=== PATIENT | male | born 1975 | race Caucasian/White ===

== ENCOUNTER 2019-07-02 04:23 | Emergency (ER) | payer OTHER ==
[~2019-07-02] VITALS: Ht 182.9 cm; Wt 179.5 kg
--- NOTE | 2019-07-02 04:25 | PHYS DOC ---
Adult General Chief Complaint Chief Complaint: ".. I ve got dental pain. .. here in this tooth... but it just started... and now the whole Lt side of my face is swollen.. I took some left over Amoxicillin.. 500 mg .. I was going to get in to my dentist.. but my face really swelled up tonight..." HPI HPI Patient is a 43 year old male who presents with above hx and complaints of dental pain.tooth #4 and the surrounding gum. No pointing abscesses. No trismus. No history immunosuppression. General dental care of look good. Does have edema over the entire right side of face and adenopathy at the angle of mandible. Last tetanus was approximately 4 years ago. Review of Systems Review of Systems Constitutional: History of fever Eyes: Denies change in visual acuity, redness, or eye pain [] HENT: Denies nasal congestion or sore throat []history of dental pain and facial swelling Respiratory: Denies cough or shortness of breath [] Cardiovascular: No additional information not addressed in HPI [] GI: Denies abdominal pain, nausea, vomiting, bloody stools or diarrhea [] : Denies dysuria or hematuria [] Musculoskeletal: Denies back pain or joint pain [] Integument: Denies rash or skin lesions [] Neurologic: Denies headache, focal weakness or sensory changes [] Endocrine: Denies polyuria or polydipsia [] All other systems were reviewed and found to be within normal limits, except as documented in this note. Family History Family History Noncontributory Current Medications Current Medications See nursing for home medications Allergies Allergies Reports hydrocordone makes him vomit Physical Exam Physical Exam Constitutional: Moderate acute distress, non-toxic appearance. [] HENT: Normocephalic, atraumatic, bilateral external ears normal, oropharynx moist, no oral exudates, nose normal. [Dental pain in and around tooth #4. Obvious swelling of the gum in area of tooth 4#some adenopathy at ankle on mandible. Does have facial cellulitis. No periorbital cellulitis no trismus. Eyes: PERRLA, EOMI, conjunctiva normal, no discharge. [] Neck: Normal range of motion, no tenderness, supple, no stridor. [] Cardiovascular:Heart rate regular rhythm, no murmur [] Lungs & Thorax: Bilateral breath sounds clear to auscultation [] Abdomen: Bowel sounds normal, soft, no tenderness, no masses, no pulsatile masses. [] Obese Skin: Warm, dry, no erythema, no rash. [] Back: No tenderness, no CVA tenderness. [] Extremities: No tenderness, no cyanosis, no clubbing, ROM intact, no edema. [] Neurologic: Alert and oriented X 3, normal motor function, normal sensory function, no focal deficits noted. [] Psychologic: Affect anxious, judgement normal, mood normal. [] EKG EKG [] Radiology/Procedures Radiology/Procedures [] Course & Med Decision Making Course & Med Decision Making Pertinent Labs and Imaging studies reviewed. (See chart for details) Take Tylenol and ibuprofen for pain. Take Keflex 500 mg 3 times a day. Must see a dentist. Return if any concerns. Follow-up primary care. Recheck blood pressure on follow-up. 1. Dental pain-suspect dental abscess in and around area of tooth #4 2. Right facial cellulitis 3. Elevated blood pressure [] Dragon Disclaimer Dragon Disclaimer This electronic medical record was generated, in whole or in part, using a voice recognition dictation system. Departure Departure: Disposition: 01 HOME/RESIDENCE PRIOR TO ADM Condition: STABLE Referrals: PCP,NO (PCP) Scripts Cephalexin (KEFLEX) 500 Mg Capsule 500 MG PO TID for facial cellulitis for 10 Days, BOTTLE Prov: PHILIPPE HANNON MD 07/02/19 Hydrocodone/Ibuprofen (HYDROCODONE-IBUPROFEN 7.5-200 ) 1 Each Tablet 1 TAB PO PRN Q6HRS PRN for PAIN, #30 TAB 0 Refills Prov: PHILIPPE HANNON MD 07/02/19 Eugenia Disclaimer This chart was dictated in whole or in part using Voice Recognition software in a busy, high-work load, and often noisy Emergency Department environment. It may contain unintended and wholly unrecognized errors or omissions. PHILIPPE HANNON MD Jul 02, 2019 04:25
[2019-07-02] MEDS ORDERED: cefTRIAXone IM 1 GM VIAL IM ONE (05:00)
[2019-07-02] MEDS ORDERED: KETOROLAC 60 MG/2 ML VIAL. IM ONE (05:00)
[2019-07-02] MEDS ORDERED: CEPH-264 PO (05:16)
[2019-07-02] MEDS ORDERED: HYDR-1179 PO (05:16)
[2019-07-02] MEDS ORDERED: LIDOCAINE 1% Multi-Dose 20 ML VIAL. ONE (05:17)
[2019-07-02 05:45] VITALS: BP 165/107
== END 2019-07-02 05:47 | disposition home or self-care (01) ==
LOC: ER 04:23
DX: K08.89 Other specified disorders of teeth and supporting structures (principal); L03.211 Cellulitis of face; I10 Essential (primary) hypertension; R60.0 Localized edema
CPT/HCPCS: 96372; 99284; J0696; J1885

== ENCOUNTER 2021-04-14 07:07 | Emergency (ER) | payer OTHER ==
[~2021-04-14] VITALS: Ht 182.9 cm; Wt 179.5 kg
[~2021-04-14 07:07] MED LIST: CEPH-264 PO; HYDR-1179 PO
--- NOTE | 2021-04-14 07:23 | EKG ---
[address] [address] Test Date: 2021-04-14 Test Time: 07:13:00 Pat Name: NIALL GRANT Department: Room: Gender: M Upstairs Maid: DAFNE : 1975 Requested By: MYRNA CAMACHO Order Number: [id number] Reading MD: Ricardo Jones Measurements Intervals [place] Rate: 80 P: 37 RI: 140 QRS: 28 QRSD: 96 T: 15 QT: 366 QTc: 426 Interpretive Statements SINUS RHYTHM NORMAL ECG RI6.02 No previous ECG available for comparison Electronically Signed On 04-15-2021 14:26:01 [employer] by Ricardo Jones
[2021-04-14] MEDS ORDERED: ONDANSETRON PF 4 MG/2 ML VIAL. IVP ONE (07:30)
[2021-04-14] MEDS ORDERED: IV NORMAL SALINE 1,000ML 1,000 ML IV ONE (07:30)
--- NOTE | 2021-04-14 07:30 | PHYS DOC ---
Past History Past Medical History: No Pertinent History Past Surgical History: No Surgical History Alcohol Use: Occasionally General Adult EDM: Chief Complaint: SYNCOPE HPI: HPI: 45-year-old male presents with syncopal episode and head laceration. The patient was sitting on the toilet and he had some abdominal pain. He thought he might need to throw up but not lasting he remembers. He then remembers his helping pick him up off the floor. The patient went unconscious and fell off the toilet and hit his forehead on something. He has a 2 cm laceration between his eyes. He has had recent Covid exposure and he is not vaccinated. He is feeling mildly short of breath and has a cough at this time. Denies fever or chills. Review of Systems: Review of Systems: Constitutional: Denies fever or chills Eyes: Denies change in visual acuity HENT: Denies nasal congestion or sore throat Respiratory: Intermittent cough with shortness of breath Cardiovascular: Denies chest pain or edema GI: Nausea. Denies abdominal pain, vomiting, bloody stools or diarrhea : Denies dysuria Musculoskeletal: Denies back pain or joint pain Integument: Laceration forehead Neurologic: Syncope. Denies headache, focal weakness or sensory changes Endocrine: Denies polyuria or polydipsia Lymphatic: Denies swollen glands Psychiatric: Denies depression or anxiety Allergies: Allergies: Allergies Coded Allergies Type Severity Reaction Last Updated Verified hydrocodone Allergy Intermediate Nausea and Vomiting 07/02/19 Yes Physical Exam: PE: Constitutional: Well developed, well nourished, morbidly obese, no acute distress, non-toxic appearance. [] HENT: Normocephalic, atraumatic, bilateral external ears normal, oropharynx moist, no oral exudates, nose normal. [] Eyes: PERRLA, EOMI, conjunctiva normal, no discharge. [] Neck: Normal range of motion, no tenderness, supple, no stridor. [] Cardiovascular: Heart rate 80, regular rhythm, no murmur [] Lungs & Thorax: Bilateral breath sounds clear to auscultation [] Abdomen: Bowel sounds normal, soft, no tenderness, no masses, no pulsatile masses. [] Skin: Warm, dry, no erythema, no rash. [] Back: No tenderness, no CVA tenderness. [] Extremities: No tenderness, no cyanosis, no clubbing, ROM intact, no edema. [] Neurologic: Alert and oriented X 3, normal motor function, normal sensory function, no focal deficits noted. [] Psychologic: Affect normal, judgement normal, mood normal. [] Current Patient Data: Vital Signs: Vital Signs Date Time Temp Pulse Resp B/P (MAP) Pulse Ox O2 Delivery O2 Flow Rate FiO2 04/14/21 07:07 98.2 77 20 103/53 (70) 92 Room Air EKG: EKG: Sinus rhythm, rate 80, normal axis, no ST elevation or depression. [] Radiology/Procedures: Radiology/Procedures: [] Impressions: CT brain without contrast. HISTORY: Syncope, fall. CT scan the brain was done without contrast. Sinuses are clear. A skull fracture is not identified. There is no intracranial hemorrhage or subdural hematoma. There is no mass effect or shift of the midline. Ventricles are normal in size. An acute CVA is not identified. IMPRESSION: 1. No intracranial hemorrhage or acute finding noted. PQRS Compliance Statement: One or more of the following individualized dose reduction techniques were utilized for this examination: 1. Automated exposure control 2. Adjustment of the mA and/or kV according to patient size 3. Use of iterative reconstruction technique Electronically signed by: Chilango Talley MD (04/14/2021 8:07 AM) [id number] DICTATED AND SIGNED BY: CHILANGO TALLEY MD DATE: 04/14/21 08 CC: MYRNA CAMACHO DO; PCP,NO ~MTH0 0 CT THORAX WO INDICATION: SHORTNESS OF BREATH, SYNCOPE, DIZZINESS, SWEATY COMPARISON STUDY: Chest radiograph 04/14/2021. TECHNIQUE: Unenhanced axial images were obtained through the lungs and upper abdomen. Coronal and sagittal multiplanar reconstructions were also obtained. PQRS compliance statement: One or more of the following individualized dose reduction techniques were utilized for this examination: 1. Automated exposure control 2. Adjustment of the mA and/or kV according to patient size 3. Use of iterative reconstruction technique FINDINGS: Lungs and Airways: Scattered bilateral groundglass opacities and cons olidations.. Calcified pulmonary granulomas. Normal central airways. Pleura: The pleural spaces are normal. Heart and Mediastinum: The visualized thyroid gland is normal in size and attenuation. No axillary or supraclavicular lymphadenopathy. No mediastinal, hilar or retrocrural lymphadenopathy. Calcified mediastinal lymph nodes consistent with remote granulomatous disease. The heart and pericardium are within normal limits. The great vessels of the thorax are normal. Abdomen: Hepatic steatosis. Enlarged spleen measuring 14.5 cm. Bones and Soft Tissues: The visualized skeletal structures and soft tissues of the chest wall are within normal limits. IMPRESSION: 1. Scattered bilateral groundglass opacities and consolidations, likely representing multifocal infection. 2. Hepatic steatosis. Electronically signed by: Tevin Swartz MD (04/14/2021 8:21 AM) [id number] DICTATED AND SIGNED BY: TEVIN SWARTZ MD DATE: 04/14/21814 CC: MYRNA CAMACHO DO; PCP,NO ~MTH0 0 Heart Score: C/O Chest Pain: N/A Risk Factors: Risk Factors: DM, Current or recent (<one month) smoker, HTN, HLP, family history of CAD, obesity. Risk Scores: Score 0 - 3: 2.5% MACE over next 6 weeks - Discharge Home Score 4 - 6: 20.3% MACE over next 6 weeks - Admit for Clinical Observation Score 7 - 10: 72.7% MACE over next 6 weeks - Early Invasive Strategies Course & Med Decision Making: Course & Med Decision Making Pertinent Labs and Imaging studies reviewed. (See chart for details) The patient's labs are significant for decreased platelets of 99. They are otherwise unremarkable. Chest x-ray shows bilateral pneumonia and likely COVID- 19. I have treated the patient with a gram of Rocephin, 500 mg of azithromycin, 10 mg of dexamethasone. He states feeling okay except for fatigue. I repaired his forehead laceration. See note below for details. The patient does not meet admission criteria. His oxygen level has stayed 93 to 94% on room air with a normal heart rate and blood pressure. I have advised the patient isolate f rom other people at home. If his symptoms worsen or new symptoms develop, the patient may need to return to the emergency room for hospital admission. He states verbal understanding. He is stable for discharge at this time. [] Dragon Disclaimer: Dragon Disclaimer: This electronic medical record was generated, in whole or in part, using a voice recognition dictation system. Departure Departure: Impression: Primary Impression: COVID-19 Additional Impression: Pneumonia Qualified Codes: J18.9 - Pneumonia, unspecified organism Disposition: 01 HOME / SELF CARE / HOMELESS Condition: STABLE Referrals: PCP,NO (PCP) Patient Instructions: Pneumonia, Adult, [id number] Additional Instructions: You have been tested for or diagnosed with COVID-19. It is an infection caused by a new type of coronavirus. COVID-19 will cause cold-like or mild flu symptoms in most. It can cause more severe symptoms like problems breathing in some. There is no treatment for COVID-19. The body will clear the infection over time. Self-care will help to ease discomfort. Steps to Take: Self-Care Rest as needed. Healthy habits may help you feel better. Steps include: Choose healthy foods including fruits and vegetables. Drink water throughout the day. Get plenty of sleep each night. If you smoke, try to quit. It may ease breathing. Avoid alcohol. Keep Others Healthy The virus can spread to others. Droplets are released every time you sneeze or cough. The droplets can get into the mouth, nose, or eyes of people near you and lead to infection. To lower the chances of spreading COVID-19 to others: Stay at home until your doctor has said it is safe to leave. If you tested positive this will mean staying isolated until both of the following are true: At least 7 days have passed since the start of illness. You are free of fever for at least 72 hours without the use of medicine. During this time: - Avoid public areas, events, or transportation. Do not return to work or school until your doctor has said it is safe to do so. - Call ahead if you need to go to a medical center. Let them know you may have COVID-19. It will help them guide you where to go. They may also ask you to wear a facemask when you come to the office. - If you call for emergency medical services, let them know you may have COVID- 19. While at home: - Try to avoid close contact with others. Stay about 6 feet away. - If possible, spend most of your time in a separate room from others. - Use a face mask if you will be in close contact with others such as sharing a room or vehicle. - Have someone wipe down common surfaces in the home. Use household batch weigher every day on areas like doorknobs, counters, or sinks. - Cough or sneeze into a tissue. Throw the tissue away right after use. If a tissue is not available, cough or sneeze into your elbow. - Wash your hands often. Wash them after sneezing or coughing. Use soap and water and wash for at least 20 seconds. Alcohol based hand rug cleaner hand can be used if soap and water is not available. - Do not prepare food for others. Avoid sharing personal items like forks, spoons, or toothbrushes. - Avoid close contact with pets while you are sick. There is no evidence of the virus passing to pets. This is a safety step until more is known about this virus. Isolation can be frustrating. Social interaction can help. Keep in touch with friends and family through phone and tech options. You can still interact with others in your home, just keep a safe distance of about 6 feet. Follow-up: Your doctors office will check in with you to see if there are any changes in your health. You may be asked to keep track of symptoms to share with them. They will also let you know when you are clear to be in public again. Problems to Look Out For: Contact your doctor if your recovery is not going as you expect. Get emergency care if you have problems such as: - Trouble breathing - Nonstop chest pain or pressure - Changes in awareness, confusion, or problems waking - Lips or face have bluish color - Worsening of symptoms If you think you have an emergency, call for emergency medical services right away. As taken from [facility] Scripts Dexamethasone (Decadron) 4 Mg Tablet 1 TAB PO BID for COVID-19 for 4 Days, #8 TAB 0 Refills Prov: MYRNA CAMACHO DO 04/14/21 Azithromycin (AZITHROMYCIN TABLET) 250 Mg Tablet 250 MG PO DAILY for ANTI-BIOTIC for 4 Days, #4 TAB 0 Refills start 04/15/21 Prov: MYRNA CAMACHO DO 04/14/21 MYRNA CAMACHO DO Apr 14, 2021 07:30
--- NOTE | 2021-04-14 08:03 | RAD ---
XR CHEST 1V History: Reason: syncope, fall / Spl. Instructions: / History: Comparison: None. Findings: Mild ill-defined mid and bibasilar opacities. No pleural effusion. No pneumothorax. Enlarged cardiac size. Impression: 1. Mild ill-defined mid and bibasilar opacities, may represent atelectasis or developing infiltrates . 2. Enlarged cardiac size. Electronically signed by: René Rich DO (04/14/2021 8:01 AM) [facility] [place]
--- NOTE | 2021-04-14 08:09 | RAD ---
CT brain without contrast. HISTORY: Syncope, fall. CT scan the brain was done without contrast. Sinuses are clear. A skull fracture is not identified. T here is no intracranial hemorrhage or subdural hematoma. There is no mass effect or shift of the midl ine. Ventricles are normal in size. An acute CVA is not identified. IMPRESSION: 1. No intracranial hemorrhage or acute finding noted. PQRS Compliance Statement: One or more of the following individualized dose reduction techniques were utilized for this examinat ion: 1. Automated exposure control 2. Adjustment of the mA and/or kV according to patient size 3. Use of iterative reconstruction technique Electronically signed by: Chilango Talley MD (04/14/2021 8:07 AM) [id number]
--- NOTE | 2021-04-14 08:23 | RAD ---
CT THORAX WO INDICATION: SHORTNESS OF BREATH, SYNCOPE, DIZZINESS, SWEATY COMPARISON STUDY: Chest radiograph 04/14/2021. TECHNIQUE: Unenhanced axial images were obtained through the lungs and upper abdomen. Coronal and sa gittal multiplanar reconstructions were also obtained. PQRS compliance statement: One or more of the following individualized dose reduction techniques were utilized for this examinat ion: 1. Automated exposure control 2. Adjustment of the mA and/or kV according to patient size 3. Use of iterative reconstruction technique FINDINGS: Lungs and Airways: Scattered bilateral groundglass opacities and consolidations.. Calcified pulmonary granulomas. Normal central airways. Pleura: The pleural spaces are normal. Heart and Mediastinum: The visualized thyroid gland is normal in size and attenuation. No axillary or supraclavicular lymphadenopathy. No mediastinal, hilar or retrocrural lymphadenopathy. Calcified med iastinal lymph nodes consistent with remote granulomatous disease. The heart and pericardium are with in normal limits. The great vessels of the thorax are normal. Abdomen: Hepatic steatosis. Enlarged spleen measuring 14.5 cm. Bones and Soft Tissues: The visualized skeletal structures and soft tissues of the chest wall are wit hin normal limits. IMPRESSION: 1. Scattered bilateral groundglass opacities and consolidations, likely representing multifocal infec tion. 2. Hepatic steatosis. Electronically signed by: Lg Swartz MD (04/14/2021 8:21 AM) [id number]
[2021-04-14 08:26] LABS: BASO % 1 % (0-3); EOS % 0 % (0-3); HEMATOCRIT 46.5 % (39.0-53.0); HEMOGLOBIN 15.8 g/dL (13.0-17.5); LYMPH # 1.3 x10^3/uL (1.0-4.8); LYMPH % 20 % (24-48); MEAN CORPUSCULAR HEMOGLOBIN 29 pg (25-35); MEAN CORPUSCULAR HGB CONC 34 g/dL (31-37); MEAN CORPUSCULAR VOLUME 86 fL (79-100); MONO # 0.6 x10^3/uL (0.0-1.1); MONO % 9 % (0-9); NEUT # 4.5 x10^3uL (1.8-7.7); NEUT % 70 % (31-73); PLATELET COUNT 99 x10^3/uL (140-400); RED BLOOD COUNT 5.41 x10^6/uL (4.30-5.70); RED CELL DISTRIBUTION WIDTH 14.7 % (11.5-14.5); WHITE BLOOD COUNT 6.4 x10^3/uL (4.0-11.0)
[2021-04-14 08:35] LABS: CALCIUM 8.5 mg/dL (8.5-10.1); CREATININE 0.8 mg/dL (0.7-1.3); GFR 105.5; POTASSIUM 4.4 mmol/L (3.5-5.1)
[2021-04-14 08:41] LABS: ALBUMIN 3.7 g/dL (3.4-5.0); ALBUMIN/GLOBULIN RATIO 1.1 (1.0-1.7); TOTAL BILIRUBIN 0.4 mg/dL (0.2-1.0)
[2021-04-14] MEDS ORDERED: AZITHROMYCIN 250 MG TABLET. PO ONE (08:45)
[2021-04-14 09:10] LABS: PLATELET CLUMP PRESENT; PLT ESTIMATE DECREASED (ADEQUATE)
[2021-04-14] MEDS ORDERED: IV NORMAL SALINE 50ML 50 ML ONE (09:42)
[2021-04-14] MEDS ORDERED: DEXAMETHASONE SOD PHOS 10 MG/ML VIAL. ONE (09:42)
[2021-04-14] MEDS ORDERED: cefTRIAXone SODIUM 1 GM VIAL ONE (09:42)
[2021-04-14] MEDS ORDERED: DEXAMETHASONE SOD PHOS 10 MG/ML VIAL. IVP ONE (09:45)
[2021-04-14] MEDS ORDERED: DEXA4TAB63 PO (09:49)
[2021-04-14] MEDS ORDERED: AZIT250T6 PO (09:49)
[2021-04-14 10:15] VITALS: BP 138/84
== END 2021-04-14 10:15 | disposition home or self-care (01) ==
LOC: ER 07:07
DX: U07.1 COVID-19 (principal); S01.81XA Laceration without foreign body of other part of head, initial encounter; J18.9 Pneumonia, unspecified organism; Z88.5 Allergy status to narcotic agent; W18.09XA Striking against other object with subsequent fall, initial encounter; Y93.89 Activity, other specified; Y92.89 Other specified places as the place of occurrence of the external cause; Y99.8 Other external cause status
CPT/HCPCS: 12002; 70450; 71045; 71250; 80053; 84484; 85025; 93005; 96361; 96365; 96375; 99285; C9803; J0696; J1100; J2405; J7030; U0003

== ENCOUNTER 2021-04-20 07:14 | Inpatient (IN) | payer OTHER ==
[~2021-04-20] VITALS: Ht 185.4 cm; Wt 158.0 kg
[~2021-04-20 07:14] MED LIST changes: +AZIT250T6 PO; +DEXA4TAB63 PO
[2021-04-20] MEDS ORDERED: IPRATRPIUM/ALBUTEROL 0.5/2.5MG 3 ML NEBU. ONE (07:35)
[2021-04-20] MEDS ORDERED: IOHEXOL 350 MG/ML 100 ML VIAL. IV ONE (07:45)
[2021-04-20] MEDS ORDERED: DEXAMETHASONE SOD PHOS 10 MG/ML VIAL. IV ONE (07:45)
[2021-04-20] MEDS ORDERED: ALBUTEROL SULFATE 8GM INHALER. INH ONE (07:45)
--- NOTE | 2021-04-20 08:06 | PHYS DOC ---
Past History Past Medical History: No Pertinent History Past Surgical History: No Surgical History Alcohol Use: Occasionally General Adult EDM: Chief Complaint: SHORTNESS OF BREATH HPI: HPI: 45-year-old male presents with shortness of breath. Patient was diagnosed with COVID-19 about a week ago. He has been doing well at home but has been feeling more short of breath for last couple days. Overnight, he felt like he was having a lot more trouble breathing. He has significantly decreased exercise tolerance. He has not noticed a fever at home. He feels generally well otherwise. Review of Systems: Review of Systems: Constitutional: Denies fever or chills Eyes: Denies change in visual acuity HENT: Denies nasal congestion or sore throat Respiratory: shortness of breath Cardiovascular: Denies chest pain or edema GI: Denies abdominal pain, nausea, vomiting, bloody stools or diarrhea : Denies dysuria Musculoskeletal: Denies back pain or joint pain Integument: Denies rash Neurologic: Denies headache, focal weakness or sensory changes Endocrine: Denies polyuria or polydipsia Lymphatic: Denies swollen glands Psychiatric: Denies depression or anxiety Current Medications: Current Meds: Current Medications Medications (Trade) Dose Ordered Sig/Jason Start Time Stop Time Status Last Admin Dose Admin Albuterol Sulfate (Ventolin Hfa Inhaler) 1 puff 1X ONCE 04/20/21 07:45 04/20/21 07:46 DC Albuterol/ Ipratropium (Duoneb) 3 ml STK-MED ONCE 04/20/21 07:35 04/20/21 07:35 DC Dexamethasone Sodium Phosphate (Decadron) 10 mg 1X ONCE 04/20/21 07:45 04/20/21 07:46 DC Iohexol (Omnipaque 350 Mg/ml) 100 ml 1X ONCE 04/20/21 07:45 04/20/21 07:48 DC Allergies: Allergies: Allergies Coded Allergies Type Severity Reaction Last Updated Verified hydrocodone Allergy Intermediate Nausea and Vomiting 07/02/19 Yes Physical Exam: PE: Constitutional: Well developed, well nourished, morbidly obese, no acute distress, non-toxic appearance. [] HENT: Normocephalic, atraumatic, bilateral external ears normal, oropharynx moist, no oral exudates, nose normal. [] Eyes: PERRLA, EOMI, conjunctiva normal, no discharge. [] Neck: Normal range of motion, no tenderness, supple, no stridor. [] Cardiovascular: Heart rate regular rhythm, no murmur [] Lungs & Thorax: Bilateral breath sounds diminished [] Abdomen: Bowel sounds normal, soft, no tenderness, no masses, no pulsatile masses. [] Skin: Warm, dry, no erythema, no rash. [] Back: No tenderness, no CVA tenderness. [] Extremities: No tenderness, no cyanosis, no clubbing, ROM intact, no edema. [] Neurologic: Alert and oriented X 3, normal motor function, normal sensory function, no focal deficits noted. [] Psychologic: Affect normal, judgement normal, mood normal. [] EKG: EKG: [] Radiology/Procedures: Radiology/Procedures: [] Impressions: Exam performed: One view chest HISTORY: Covid positive, shortness of breath DATE OF SERVICE: 04/20/2021. Comparison made to a single view chest from April 14, 2021. FINDINGS: Study somewhat limited due to poor inspiration and apparent cardiomegaly. There is development of diffuse parenchymal infiltrates throughout both lungs. There is no pleural effusion or pneumothorax. Bones are normal. IMPRESSION: Interval development of diffuse bilateral pulmonary opacities likely infiltrates Electronically signed by: Aleena Natarajan MD (04/20/2021 8:36 AM) [facility] DICTATED AND SIGNED BY: ALEENA NATARAJAN MD DATE: 04/20/21 0835 CC: MYRNA CAMACHO DO; PCP,UNKNOWN ~MTH0 0 EXAMINATION: CTA CHEST CLINICAL HISTORY: Covid pneumonia Technique: Spiral CT acquisition of the chest from the thoracic inlet to the upper abdomen following IV contrast with coronal and sagittal reformatted images also provided for review. 3D maximum intensity projection images also performed. CT Dose Reduction Employed: One or more of the following individualized dose reduction techniques were utilized for this examination: 1. Automated exposure control 2. Adjustment of the mA and/or kV according to patient size 3. Use of iterative reconstruction technique. COMPARISON: Chest radiograph same day, CT chest 04/14/2021 FINDINGS: Limitations: Suboptimal study due to non-ideal pulmonary arterial enhancement and respiratory motion. Pulmonary Vasculature: No evidence of main or definite lobar pulmonary arterial thrombus. Remainder of the pulmonary arterial system suboptimally evaluated. Lung Parenchyma, Pleura, and Airways: Diffuse patchy groundglass opacities throughout bilateral lungs. No pleural effusion. Central airways patent. Lower Neck, Lymph Nodes, and Mediastinum: Visualized thyroid gland within normal limits. Calcified mediastinal lymph nodes, compatible with old granulomatous disease. Heart, Pericardium, and Thoracic Vessels: Cardiac chambers normal in size. No pericardial effusion. Thoracic aorta within normal limits. No coronary artery atherosclerotic calcifications are noted, although the study is not optimized for coronary assessment. Bones and Soft Tissues: Multilevel degenerative changes in the thoracic spine. Upper Abdomen: Partially visualized upper abdomen unremarkable. IMPRESSION: No evidence of main or definite lobar pulmonary embolism on limited evaluation as described. Diffuse patchy groundglass opacities, consistent with with history of viral pneumonia. Electronically signed by: Cyril Galloway DO (04/20/2021 9:00 AM) [facility] DI[facility]ATED AND SIGNED BY: CYRIL GALLOWAY DO DATE: 04/20/21847 CC: MYRNA CAMACHO DO; PCP,UNKNOWN ~MTH0 0 Heart Score: C/O Chest Pain: N/A Risk Factors: Risk Factors: DM, Current or recent (<one month) smoker, HTN, HLP, family hi story of CAD, obesity. Risk Scores: Score 0 - 3: 2.5% MACE over next 6 weeks - Discharge Home Score 4 - 6: 20.3% MACE over next 6 weeks - Admit for Clinical Observation Score 7 - 10: 72.7% MACE over next 6 weeks - Early Invasive Strategies Course & Med Decision Making: Course & Med Decision Making Pertinent Labs and Imaging studies reviewed. (See chart for details) The patient's labs are essentially unremarkable. His chest x-ray does show bilateral infiltrates. His CT angiogram is negative for pulmonary embolus but also shows bilateral infiltrates with groundglass opacities. I will treat the patient with Rocephin and azithromycin. This appears to be Covid pneumonia. The patient is needing supplemental oxygen to maintain oxygen saturation of 90%. I will admit him to the hospital. I spoke with Dr. Ann and he is excepted the patient for admission. [] Eugenia Disclaimer: Eugenia Disclaimer: This electronic medical record was generated, in whole or in part, using a voice recognition dictation system. Departure Departure: Impression: Primary Impression: Pneumonia due to COVID-19 virus Disposition: ADMITTED INPATIENT Admitting Physician: Seth, Ahmed Condition: STABLE Referrals: PCP,UNKNOWN (PCP) MYRNA CAMACHO DO Apr 20, 2021 08:06
[2021-04-20 08:31] LABS: BASO # 0.1 x10^3/uL (0.0-0.2); BASO % 1 % (0-3); EOS # 0.1 x10^3/uL (0.0-0.7); EOS % 1 % (0-3); HEMATOCRIT 48.2 % (39.0-53.0); HEMOGLOBIN 16.2 g/dL (13.0-17.5); LYMPH # 1.4 x10^3/uL (1.0-4.8); LYMPH % 14 % (24-48); MEAN CORPUSCULAR HEMOGLOBIN 29 pg (25-35); MEAN CORPUSCULAR HGB CONC 34 g/dL (31-37); MEAN CORPUSCULAR VOLUME 86 fL (79-100); MONO % 10 % (0-9); NEUT # 7.9 x10^3uL (1.8-7.7); NEUT % 76 % (31-73); PLATELET COUNT 298 x10^3/uL (140-400); RED CELL DISTRIBUTION WIDTH 14.8 % (11.5-14.5); WHITE BLOOD COUNT 10.4 x10^3/uL (4.0-11.0)
--- NOTE | 2021-04-20 08:39 | RAD ---
Exam performed: One view chest HISTORY: Covid positive, shortness of breath DATE OF SERVICE: 04/20/2021. Comparison made to a single view chest from April 14, 2021. FINDINGS: Study somewhat limited due to poor inspiration and apparent cardiomegaly. There is development of dif fuse parenchymal infiltrates throughout both lungs. There is no pleural effusion or pneumothorax. Bon es are normal. IMPRESSION: Interval development of diffuse bilateral pulmonary opacities likely infiltrates Electronically signed by: Aleena Natarajan MD (04/20/2021 8:36 AM) [facility]
[2021-04-20 08:42] LABS: CALCIUM 9.1 mg/dL (8.5-10.1); CREATININE 0.9 mg/dL (0.7-1.3); GFR 92.1; POTASSIUM 3.9 mmol/L (3.5-5.1)
[2021-04-20 08:48] LABS: ALBUMIN/GLOBULIN RATIO 0.6 (1.0-1.7); TOTAL BILIRUBIN 0.6 mg/dL (0.2-1.0); TOTAL PROTEIN 7.8 g/dL (6.4-8.2)
--- NOTE | 2021-04-20 09:02 | RAD ---
EXAMINATION: CTA CHEST CLINICAL HISTORY: Covid pneumonia Technique: Spiral CT acquisition of the chest from the thoracic inlet to the upper abdomen following IV contrast with coronal and sagittal reformatted images also provided for review. 3D maximum intensi ty projection images also performed. CT Dose Reduction Employed: One or more of the following individualized dose reduction techniques wer e utilized for this examination: 1. Automated exposure control 2. Adjustment of the mA and/or kV ac cording to patient size 3. Use of iterative reconstruction technique. COMPARISON: Chest radiograph same day, CT chest 04/14/2021 FINDINGS: Limitations: Suboptimal study due to non-ideal pulmonary arterial enhancement and respiratory motion. Pulmonary Vasculature: No evidence of main or definite lobar pulmonary arterial thrombus. Remainder o f the pulmonary arterial system suboptimally evaluated. Lung Parenchyma, Pleura, and Airways: Diffuse patchy groundglass opacities throughout bilateral lungs . No pleural effusion. Central airways patent. Lower Neck, Lymph Nodes, and Mediastinum: Visualized thyroid gland within normal limits. Calcified me diastinal lymph nodes, compatible with old granulomatous disease. Heart, Pericardium, and Thoracic Vessels: Cardiac chambers normal in size. No pericardial effusion. T horacic aorta within normal limits. No coronary artery atherosclerotic calcifications are noted, alth ough the study is not optimized for coronary assessment. Bones and Soft Tissues: Multilevel degenerative changes in the thoracic spine. Upper Abdomen: Partially visualized upper abdomen unremarkable. IMPRESSION: No evidence of main or definite lobar pulmonary embolism on limited evaluation as described. Diffuse patchy groundglass opacities, consistent with with history of viral pneumonia. Electronically signed by: Cyril Clay DO (04/20/2021 9:00 AM) [facility]
[2021-04-20] MEDS ORDERED: ACETAMINOPHEN 325 MG TABLET PO PRN (09:15)
[2021-04-20] MEDS ORDERED: AZITHROMYCIN 500 MG in IV NORMAL SALINE 250ML 250 ML IV ONE (09:15)
[2021-04-20] MEDS ORDERED: ENOXAPARIN ** NOTE DOSE ** SYRINGE SQ ONE (09:15)
[2021-04-20] MEDS ORDERED: ONDANSETRON PF 4 MG/2 ML VIAL. IVP PRN (09:15)
[2021-04-20] MEDS ORDERED: AZITHROMYCIN 500 MG VIAL. IV ONE (10:14)
[2021-04-20] MEDS ORDERED: cefTRIAXone SODIUM 1 GM VIAL ONE (10:14)
[2021-04-20] MEDS ORDERED: IV NORMAL SALINE 50ML 50 ML ONE (10:14)
[2021-04-20] MEDS ORDERED: IV NORMAL SALINE 250ML 250 ML ONE (10:14)
[2021-04-20] MEDS ORDERED: REMDESIVIR LOAD in IV NORMAL SALINE 250ML TV IV ONE (18:00)
[2021-04-20 20:47] VITALS: BP 143/88
[2021-04-20 22:00] VITALS: BP 123/79
[2021-04-20 23:00] VITALS: BP 129/80
[2021-04-21] VITALS (10 sets, daily range): BP systolic 120–151; BP diastolic 79–103
[2021-04-21] MEDS ORDERED: CHOLECALCIFEROL (VITAMIN D3) 50,000 UNIT CAPSULE PO SCH (09:00)
[2021-04-21] MEDS: FAMOTIDINE 20 MG TABLET PO SCH ×2 (09:01→20:08)
[2021-04-21] MEDS: ZINC SULFATE 220 MG CAPSULE. PO SCH (09:01)
[2021-04-21] MEDS: BUDESONIDE 0.5 MG/2 ML NEBU NEB SCH ×2 (09:01→22:01)
[2021-04-21] MEDS: ASCORBIC ACID 1,000 MG TABLET PO SCH ×2 (09:32→20:09)
[2021-04-21] MEDS ORDERED: ENOXAPARIN 40 MG/0.4 ML SYRINGE. SQ SCH (10:00)
[2021-04-21] MEDS ORDERED: DEXAMETHASONE SOD PHOS 4 MG/ML VIAL. IVP ONE (10:00)
[2021-04-21] MEDS ORDERED: AZITHROMYCIN 250 MG in IV NORMAL SALINE 250ML 250 ML IV SCH (10:30)
[2021-04-21] MEDS ORDERED: AZITHROMYCIN 500 MG in IV NORMAL SALINE 250ML 250 ML IV SCH (11:00)
[2021-04-21] MEDS: ENOXAPARIN 40 MG/0.4 ML SYRINGE. SQ SCH ×2 (11:27→20:09)
--- NOTE | 2021-04-21 13:40 | HP ---
DATE OF SERVICE: 04/21/2021 ADMIT DATE: 04/20/2021 HISTORY OF PRESENT ILLNESS: The patient is a 45-year-old male patient, who presented to the Emergency Room on 04/20/2021 with a complaint of shortness of breath. He apparently was diagnosed with COVID-19 about a week ago. He was seen by his primary care physician who ordered monoclonal antibodies and ___ on Wednesday, 04/18, at [facility] and on Wednesday, he started complaining of more shortness of breath and on Wednesday, he presented to the Emergency Room of [facility] with a complaint of more trouble breathing. He has significantly decreased exercise tolerance. He has not noticed any fever at home. He is otherwise feeling generally well. He was extensively investigated in the Emergency Room and has had lab work and imaging studies. His lab work are generally unrevealing except that he has transaminitis. His white cells and platelet count are normal. He has had a chest x-ray, which showed that there is diffuse parenchymal infiltrate throughout both lungs. There is no pleural effusion or pneumothorax. Bones are normal. CT angio of the chest showed no evidence of pulmonary emboli; however, there is diffuse patchy ground glass opacities consistent with history of viral pneumonia. The patient was admitted, started on IV antibiotic, IV dexamethasone as well as remdesivir and oxygen supplementation together with Lovenox for DVT prophylaxis. PAST MEDICAL HISTORY: Unremarkable except for gout, for which he is on allopurinol. PAST SURGICAL HISTORY: Unremarkable except for some tooth extraction. ALLERGIES: HE IS ALLERGIC TO HYDROCODONE. FAMILY HISTORY: He has a brother and sister, both older and healthy. Both parents are still alive and generally healthy. SOCIAL HISTORY: He is , has no children. He does not smoke. He drinks alcohol occasionally. Does not use any drugs. He works in a construction company. REVIEW OF SYSTEMS: As per history of present illness. PHYSICAL EXAMINATION: GENERAL: On arrival to the Emergency Room, he looked well and was clearly in no apparent respiratory distress. No pallor, jaundice, cyanosis or thyromegaly. No jugular venous distention. No limb edema. VITAL SIGNS: Her heart rate was 90, blood pressure was 122/83, temperature was 98, respiratory rate was 24 and oxygen saturation was 82% on room air that has improved to 95% on 15 liters by nasal cannula. HEAD, EYES, EARS, NOSE, AND THROAT: Normocephalic, atraumatic. NECK: Supple. HEART: Showed normal first and second heart sounds. No gallop, rub or murmur. CHEST: Clear to auscultation, no crepitation or rhonchi. ABDOMEN: Distended, soft, nontender. NEUROLOGIC: He was grossly intact. ASSESSMENT AND PLAN: In summary, this is a 45-year-old male patient who was otherwise medically unremarkable, was admitted with acute hypoxic respiratory failure, COVID-19 pneumonia. We will continue with antibiotics, continue with Lovenox, remdesivir and dexamethasone. LAURA DR: Lupe TID: [id number]
[2021-04-21 16:51] LABS: BGAS PH 7.44 (7.35-7.46)
[2021-04-21] MEDS: REMDESIVIR 100mg in NORMAL SALINE 250ML X 4 DAYS IV SCH (18:00)
[2021-04-21] MEDS: LACTOBACILLUS RHAMNOSUS GG 1 CAPSULE. PO SCH (20:08)
[2021-04-22 03:06] VITALS: BP 122/77
[2021-04-22 06:10] VITALS: BP 122/77
[2021-04-22 06:24] LABS: BASO % 0 % (0-3); EOS % 0 % (0-3); HEMATOCRIT 45.4 % (39.0-53.0); LYMPH # 1.2 x10^3/uL (1.0-4.8); LYMPH % 12 % (24-48); MEAN CORPUSCULAR HEMOGLOBIN 29 pg (25-35); MEAN CORPUSCULAR HGB CONC 33 g/dL (31-37); MEAN CORPUSCULAR VOLUME 86 fL (79-100); MONO # 0.8 x10^3/uL (0.0-1.1); MONO % 9 % (0-9); NEUT # 7.6 x10^3uL (1.8-7.7); NEUT % 79 % (31-73); PLATELET COUNT 299 x10^3/uL (140-400); RED BLOOD COUNT 5.28 x10^6/uL (4.30-5.70); RED CELL DISTRIBUTION WIDTH 14.3 % (11.5-14.5); WHITE BLOOD COUNT 9.7 x10^3/uL (4.0-11.0)
[2021-04-22 06:40] LABS: ALBUMIN 2.7 g/dL (3.4-5.0); ALBUMIN/GLOBULIN RATIO 0.6 (1.0-1.7); CALCIUM 8.9 mg/dL (8.5-10.1); CREATININE 0.8 mg/dL (0.7-1.3); GFR 105.5; POTASSIUM 4.5 mmol/L (3.5-5.1); TOTAL BILIRUBIN 0.6 mg/dL (0.2-1.0); TOTAL PROTEIN 7.1 g/dL (6.4-8.2)
[2021-04-22] MEDS ORDERED: CHOLECALCIFEROL (VITAMIN D3) 1,000 UNIT TABLET PO SCH (09:30)
[2021-04-22] MEDS: AZITHROMYCIN 250 MG TABLET. PO SCH (10:17)
[2021-04-22] MEDS: FAMOTIDINE 20 MG TABLET PO SCH ×2 (10:17→19:58)
[2021-04-22] MEDS: ZINC SULFATE 220 MG CAPSULE. PO SCH (10:17)
[2021-04-22] MEDS: LACTOBACILLUS RHAMNOSUS GG 1 CAPSULE. PO SCH ×2 (10:17→19:58)
[2021-04-22] MEDS: ASCORBIC ACID 1,000 MG TABLET PO SCH ×2 (10:18→19:58)
[2021-04-22] MEDS: BUDESONIDE 0.5 MG/2 ML NEBU NEB SCH ×2 (10:18→18:45)
[2021-04-22] MEDS: DEXAMETHASONE SOD PHOS 10 MG/ML VIAL. IVP SCH (10:19)
[2021-04-22] MEDS: ENOXAPARIN 40 MG/0.4 ML SYRINGE. SQ SCH ×2 (10:21→20:43)
[2021-04-22 15:00] VITALS: BP 133/85
[2021-04-22] MEDS: REMDESIVIR 100mg in NORMAL SALINE 250ML X 4 DAYS IV SCH (18:00)
[2021-04-22 19:43] VITALS: BP 133/85
--- NOTE | 2021-04-22 21:24 | PN ---
DATE: 04/22/2021 SUBJECTIVE: The patient is sitting comfortably in his chair, in no apparent distress. He stated he continued to have cough that is mostly dry and has some shortness of breath. Denied any chest pain, chills, rigors or fever. He is now maintaining his oxygen saturation at 92% on 3 liters of oxygen. OBJECTIVE: HEAD, EYES, EARS, NOSE AND THROAT: Normocephalic, atraumatic. NECK: Supple. HEART: Showed normal first and second heart sounds, no gallop or murmur. CHEST: Clear to auscultation, no crepitation or rhonchi. ABDOMEN: Distended, soft, nontender. NEUROLOGIC: He was grossly intact. His intake was 1300, output was 1850. LABORATORY DATA: As of this morning, his white cell count is 9700, hemoglobin 15, hematocrit 45, MCV 86 and platelet count of 299,000. Serum sodium was 138, potassium 4.5, chloride 102, bicarbonate 27, anion gap of 9, BUN 21, creatinine 0.8. Estimated GFR was 105 mL per minute. His glucose 146, calcium was 8.9. Total bilirubin, AST, and alkaline phosphatase are normal, ALT is down to 123. Troponin I was 8. Total protein 7.1, albumin 2.7. ASSESSMENT: 1. COVID-19 pneumonia. 2. Acute hypoxic respiratory failure. 3. Possible superimposed community-acquired pneumonia. PLAN: To continue with IV oxygen supplementation. Continue with IV antibiotic. Continue with remdesivir and dexamethasone. Continue with DVT prophylaxis. KRISTYN DR: Lupe TID: [id number]
[2021-04-22 23:20] VITALS: BP 133/85
[2021-04-23 03:55] VITALS: BP 133/85
[2021-04-23 06:17] LABS: ALBUMIN 2.8 g/dL (3.4-5.0); ALBUMIN/GLOBULIN RATIO 0.6 (1.0-1.7); CALCIUM 8.9 mg/dL (8.5-10.1); CREATININE 0.9 mg/dL (0.7-1.3); GFR 92.1; POTASSIUM 4.9 mmol/L (3.5-5.1); TOTAL BILIRUBIN 0.5 mg/dL (0.2-1.0); TOTAL PROTEIN 7.2 g/dL (6.4-8.2)
[2021-04-23] MEDS: AZITHROMYCIN 250 MG TABLET. PO SCH (07:30)
[2021-04-23] MEDS: LACTOBACILLUS RHAMNOSUS GG 1 CAPSULE. PO SCH (07:30)
[2021-04-23] MEDS: ZINC SULFATE 220 MG CAPSULE. PO SCH (07:30)
[2021-04-23] MEDS: ASCORBIC ACID 1,000 MG TABLET PO SCH (07:31)
[2021-04-23] MEDS: FAMOTIDINE 20 MG TABLET PO SCH (07:31)
[2021-04-23] MEDS: DEXAMETHASONE SOD PHOS 10 MG/ML VIAL. IVP SCH (07:32)
[2021-04-23] MEDS: BUDESONIDE 0.5 MG/2 ML NEBU NEB SCH (07:33)
[2021-04-23 08:09] VITALS: BP 129/78
[2021-04-23] MEDS: ENOXAPARIN 40 MG/0.4 ML SYRINGE. SQ SCH (10:00)
--- NOTE | 2021-04-23 10:22 | DS ---
DATE OF DISCHARGE: 04/23/2021 ATTENDING PHYSICIAN: Dr. Ann. FINAL DISCHARGE DIAGNOSES: 1. COVID-19 pneumonia. 2. Acute hypoxemic respiratory failure, improved. 3. Mild cyanosis and dyspnea. HISTORY AND PHYSICAL: The patient is a pleasant 45-year-old gentleman, otherwise healthy. He has not been vaccinated. He presented to ED with cough, congestion, shortness of breath and hypoxemia, requiring several liters of supplemental oxygen. Chest x-ray showed the presence of bibasilar infiltrates. He tested positive for coronavirus. PHYSICAL EXAMINATION: Please see the dictated note. PERTINENT LABORATORY AND X-RAY STUDIES: Admission hemoglobin was 16.2 g/dL with a white count of 10,400. Repeated the next day was 9700. Chemistry panel fairly unremarkable. Creatinine is 0.9 mg/dL. Nonfasting blood sugar 124 mg/dL. Transaminases are all normal. He was positive for coronavirus. CT of the chest done on admission showed evidence of ground glass appearing opacities in both bases consistent with viral pneumonia, no embolism or clots identified. COURSE IN HOSPITAL: The patient was admitted. He was started on empiric Decadron, Rocephin, Zithromax and supplemental oxygen. He did well. Symptoms improved. He was not too short of breath. On the fourth hospital day, his vital signs were quite stable. Blood pressure was within range without any pulse or blood pressure abnormality. He still required 3-4 liters of supplemental oxygen. Since he was quite stable from a respiratory standpoint, we made arrangement for home oxygen to be delivered. He will be discharged with 4 liters of supplemental oxygen to be tapered slowly. In addition, I recommended 5 more days of Decadron 8 mg p.o. daily. He has no other home meds. He will follow up with his primary care physician as scheduled. The patient was then discharged from our hospital in stable condition with explicit drug and followup care. Total discharge time spent 41 minutes. CEM/BENJAMIN DR: Candelaria TID: [id number] CC: NANCY MEYER MD
== END 2021-04-23 11:00 | disposition home or self-care (01) | DRG 177 ==
LOC: ER 07:14 → ICU 09:15
PROVIDERS: ADMIT Internal Medicine; ATTEND Internal Medicine
PROC: 5A0935A Assistance with Respiratory Ventilation, Less than 24 Consecutive Hours, High Flow/Velocity Cannula (ICD-10-PCS; 2021-04-21)
PROC: XW033E5 Introduction of Remdesivir Anti-infective into Peripheral Vein, Percutaneous Approach, New Technology Group 5 (ICD-10-PCS; principal; 2021-04-22)
DX: U07.1 COVID-19 (principal); J12.82 Pneumonia due to coronavirus disease 2019; J96.01 Acute respiratory failure with hypoxia; M10.9 Gout, unspecified; Z88.8 Allergy status to other drugs, medicaments and biological substances
CPT/HCPCS: 36415; 36600; 71045; 71275; 80053; 82803; 84484; 85025; 94640; 96374; J0456; J0696; J1100; J1650; J7050; Q9967; 99285-25